=== PATIENT | female | born 2000 | race Native Hawaiian/Other Pacific Islander ===

== ENCOUNTER 2019-09-14 13:50 | Emergency (ER) | payer OTHER ==
--- NOTE | 2019-09-14 14:50 | Emergency Department Record ---
History of Present Illness - General Chief complaint: ENT Stated complaint: ENT Time Seen by Provider: 09/14/19 14:45 Source: Patient Mode of Arrival: Ambulatory Limitations: No limitations - History of Present Illness Initial comments: Pt to the ED with 4-5 weeks of intermittent non productive cough. No fever or "illness", just will have days of coughing. Non smoker, no vape, without asthma hx. No sore throat, no sinus congestion. 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 Hx of seasonal Spring allergies. Onset/Timin -: Week(s) Consistency: Intermittent Improves with: None Worsens with: None Associated Symptoms: Cough, Sore throat - Related Data Home Medications Medication Instructions Recorded Confirmed Last Taken Montelukast Sodium [Singulair] 10 mg PO QHS 09/14/19 09/14/19 09/13/19 Norgestimate-Ethinyl Estradiol 1 each PO DAILY 09/14/19 09/14/19 09/14/19 [Ortho Tri-Cyclen 28 Tablet] Previous Rx's Medication Instructions Recorded Cetirizine HCl [Zyrtec] 10 mg PO DAILY 32 Days #32 tablet 09/14/19 Allergies Allergy/AdvReac Type Severity Reaction Status Date / Time Sulfa (Sulfonamide Allergy HIVES Verified 09/14/19 14:09 Antibiotics) Travel/Exposure Screening - Travel/Exposure Within Last 30 Days Have you traveled within the last 30 days?: No - Travel/Exposure Within Last Year Have you traveled outside the [place] in the last year?: No - Additonal Travel/Exposure Details Have you been exposed to anyone with a communicable illness?: No - Travel Symptoms Symptom Screening: None Review of Systems Constitutional: Denies: Chills, Fever, Malaise Eyes: Denies: Eye pain, Photophobia ENT: Denies: Congestion, Throat pain Respiratory: Reports: As per HPI, Cough Cardiovascular: Denies: Chest pain, Syncope Endocrine: Denies: Fatigue Gastrointestinal: Denies: Abdominal pain, Diarrhea, Nausea, Vomiting Genitourinary: Denies: Abnormal menses Musculoskeletal: Denies: Back pain Skin: Denies: Bruising Neurological: Denies: Headache, Tingling Psychiatric: Denies: Anxiety Hematological/Lymphatic: Denies: Anemia Past Medical History - SOCIAL HISTORY Smoking Status: Never smoker Alcohol Use: None Drug Use: None - RESPIRATORY Hx Respiratory Disorders: Yes Hx Asthma: Yes (Sports induced) - CARDIOVASCULAR Hx Cardio Disorders: No - NEURO Hx Neuro Disorders: No - GI Hx GI Disorders: No - Hx Genitourinary Disorders: No - ENDOCRINE Hx Endocrine Disorders: No - MUSCULOSKELETAL Hx Musculoskeletal Disorders: No - PSYCH Hx Psych Problems: No - HEMATOLOGY/ONCOLOGY Hx Hematology/Oncology Disorders: No Family Medical History Any Significant Family History?: No Physical Exam - General General Appearance: Alert, Oriented x3, Cooperative, No acute distress - Head Head exam: Atraumatic, Normocephalic - Eye Eye exam: Normal appearance, PERRL - ENT ENT exam: Normal exam, Mucous membranes moist Ear exam: Normal external inspection Nasal Exam: Normal inspection Mouth exam: Normal external inspection - Neck Neck exam: Normal inspection, Full ROM. negative: Lymphadenopathy - Respiratory Respiratory exam: Normal lung sounds bilaterally. negative: Decreased breath sounds, Respiratory distress, Rhonchi, Wheezes - Cardiovascular Cardiovascular Exam: Regular rate, Normal rhythm. negative: Tachycardia - GI/Abdominal GI/Abdominal exam: Soft. negative: Tenderness - Extremities Extremities exam: Normal inspection - Neurological Neurological exam: Alert, Normal gait, Oriented X3 - Psychiatric Psychiatric exam: Normal affect, Normal mood - Skin Skin exam: Normal color. negative: Rash Course Vital Signs 09/14/19 14:11 Temperature 98.8 F Pulse Rate 99 H Respiratory 20 Rate Blood Pressure 113/68 Pulse Ox 97 - Reevaluation(s) Reevaluation #1: 09/14/19 14:48 On going issue with non productive cough without fever. Will get CXR. Reevaluation #2: 09/14/19 15:19 Intermittent cough without illness. Pt well appearing. Will try treatment with antihistamine. Follow with your physician. Return here as needed. Medical Decision Making - Data Complexity MDM Data: X-Ray Ordered and/or Reviewed - Radiology Data Radiology results: Image reviewed -: Radiology Exam Interpreted by Myself (no acute process. ) Disposition Disposition: Discharge Clinical Impression: Cough Disposition: Home, Self-Care Condition: (1) Good Instructions: Chronic Cough (ED) Additional Instructions: Take antihistamine as instructed. Follow up with your doctor for full evaluation. Return as needed. Prescriptions: Cetirizine HCl [Zyrtec] 10 mg PO DAILY 32 Days #32 tablet Forms: Patient Portal Access Time of Disposition: 15:25 Quality - Quality Measures Quality Measures: N/A - Blood Pressure Screening Does Patient Have Any of the Following: No Blood Pressure Classification: Normal BP Reading Systolic Measurement: 113 Diastolic Measurement: 68 Screening for High Blood Pressure: < Normal BP, F/U Not Required > [G8783]
--- NOTE | 2019-09-14 15:32 | RADIOLOGY REPORT ---
EXAMINATION: Two View Chest Radiographs EXAM DATE: 09/14/2019 3:12 PM TECHNIQUE: Frontal and lateral views INDICATION: cough COMPARISON: None ENCOUNTER: Not applicable FINDINGS: The heart, mediastinum, and pulmonary vasculature are normal. No lung consolidation or pleural effu sions are present. IMPRESSION: Normal chest. Dictated by: Diego Chacon MD on 09/14/2019 3:30 PM. .
== END 2019-09-14 15:32 | disposition home or self-care (01) ==
LOC: ER 13:50
DX: R05 Cough (principal)
CPT/HCPCS: 71046; 99283